=== PATIENT | female | born 1975 | race African-American/Black ===

== ENCOUNTER 2017-06-07 19:07 | Emergency (ER) ==
[2017-06-07 19:11] VITALS: BP 170/99; TEMP 98.4; BMI 38.6
[2017-06-07] MEDS ORDERED: TORADOL IM STA (19:33)
--- NOTE | 2017-06-07 20:13 | ED.PDOC ---
General ED Provider: Dr. TRINITY MCGRATH Chief Complaint: Back Pain Stated Complaint: while getting out of the bed, felt something popped , ever since hurting in the lower back, hurts to bend and walk. Time Seen by Physician: 20:11 Mode of Arrival: Walk-In Information Source: Patient Nursing and Triage Documentation Reviewed and Agree: Yes Musculoskeletal Complaint Exam - Back Pain Complaint/Exam Mechanism of Injury: Reports: No known trauma Symptoms Are: Still present Timing: Constant Episodes Lasting: Minutes Initial Severity: Moderate Current Severity: Moderate Location: Reports: Discrete Character: Reports: Aching, Throbbing Aggravating: Reports: Movements Alleviating: Reports: None Associated Signs and Symptoms: Denies: Swelling, Redness, Bruising, Fever, Weakness, Numbness, Tingling, Abdominal pain, Flank pain, Bladder incontinence, Bowel incontinence, Weight loss, Pain with weight bearing Related History: Reports: Similar episode TAD Risk Factors: Reports: None AAA Risk Factors: Reports: None Cauda Equina Risk Factors: Reports: None Epidural Abcess Risk Factors: Reports: None Related Surgical History: Reports: None Focal Tenderness: Yes Paraspinal Muscle Tenderness: Yes Paraspinal Muscle Spasm: Yes Scoliosis: No Lordosis: No Kyphosis: No SLR Test: Right Negative, Left Negative Hip Motion Testing Pain: Right Negative, Left Negative Focal Weakness: Present: None Focal Sensory Loss: Present: None Gait: Present: Normal Differential Diagnoses: Fracture, Strain Review of Systems - Review Of Systems Constitutional: Reports: No symptoms Eyes: Reports: No symptoms Ears, Nose, Mouth, Throat: Reports: No symptoms Respiratory: Reports: No symptoms Cardiac: Reports: No symptoms GI: Reports: No symptoms : Reports: No symptoms Musculoskeletal: Reports: Back pain Skin: Reports: No symptoms Neurological: Reports: No symptoms Endocrine: Reports: No symptoms Hematologic/Lymphatic: Reports: No symptoms All Other Systems: Reviewed and Negative Past Medical History - Past Medical History Previously Healthy: Yes Endocrine: Reports: None Cardiovascular: Reports: None Respiratory: Reports: None Hematological: Reports: None Gastrointestinal: Reports: None Genitourinary: Reports: None Neuro/Psych: Reports: None Musculoskeletal: Reports: None Cancer: Reports: None Last Menstrual Period: none - Surgical History General Surgical History: Reports: None - Family History Family History: Reports: None - Social History Smoking Status: Current every day smoker, Light tobacco smoker Smoking Cessation Counseling Time: > 3 min - 10 min Hx Substance Use: No Alcohol Screening: None Physical Exam - Physical Exam Appearance: Ill-appearing, Obese Pain Distress: Moderate Eyes: CAMILO, EOMI, Conjunctiva clear ENT: Ears normal, Nose normal, Oropharynx normal Respiratory: Airway patent, Breath sounds clear, Breath sounds equal, Respirations nonlabored Cardiovascular: RRR, Pulses normal, No rub, No murmur GI/: Soft, Nontender, No masses, Bowel sounds normal, No Organomegaly Musculoskeletal: Normal strength, ROM intact, No edema, No calf tenderness Skin: Warm, Dry, Normal color Neurological: Sensation intact, Motor intact, Reflexes intact, Cranial nerves intact, Alert, Oriented Psychiatric: Affect appropriate, Mood appropriate Interpretation - Radiology Interpretation Radiology Interpretation By: Radiologist Radiology Results: Positive (disc bulges.) Exam Interpreted: CT Scan Critical Care Note - Critical Care Note Total Time (mins): 0 Course - Course Orders, Labs, Meds: Orders Category Date Time Status Ketorolac Tromethamine [Toradol] MEDS 06/07/17 19:33 Discontinued 30 mg IM ONCE STA CT LUMBAR SPINE W/O CONTRAST Stat RADS 06/07/17 19:33 Taken Medications Discontinued Medications Generic Name Dose Route Start Last Admin Trade Name Freq PRN Reason Stop Dose Admin Ketorolac Tromethamine 30 mg 06/07/17 19:33 06/07/17 19:35 Toradol IM 06/07/17 19:34 30 mg ONCE STA Administration Vital Signs: Temp Pulse Resp BP Pulse Ox 06/07/17 19:08 98.4 F 78 18 170/99 H 98 Departure - Departure Time of Disposition: 20:17 Disposition: HOME SELF-CARE Discharge Problem: Backache Instructions: Low Back Strain (ED) Condition: Good Pt referred to PMD for follow-up: Yes Additional Instructions: Rest Hot pack Keep checking the BP Prescriptions: Hydrocodone/Acetaminophen [[place] 5-325 Tablet] 1 tab PO TID PRN #12 tablet PRN Reason: PAIN Prednisone 10 mg PO BIDWM #14 tablet Allergies/Adverse Reactions: Allergies No Known Allergies Allergy (Verified 06/07/17 19:11) Home Medications: Ambulatory Orders Hydrocodone/Acetaminophen [[place] 5-325 Tablet] 1 tab PO TID PRN #12 tablet 06/07 Metoprolol Tartrate [Lopressor] 100 mg PO DAILY 06/07/17 Prednisone 10 mg PO BIDWM #14 tablet 06/07/17 Tizanidine HCl [Zanaflex] 4 mg PO TID 06/07/17 Disposition Discussed With: Patient, Family
--- NOTE | 2017-06-07 20:13 | CT ---
EXAM: CT scan lumbar spine HISTORY: Back pain COMPARISON: None. FINDINGS: Contiguous axial images obtained through the lumbar spine utilizing 3-mm collimation. Sag ittal and coronal reconstructions were imaged and reviewed. There is mild dextroscoliosis. The verte bral bodies are normal and height and alignment.. At L2-L3 there is a concentric non compressive disc bulge with mild facet arthropathy. Similar changes are noted at L3-L4. At L4-L5 there is a moderat e concentric disc bulge with facet arthropathy. Central canal and foramen are patent.. At L5 S1 the re is a concentric disc bulge with facet arthropathy IMPRESSION: Multilevel non compressive annular disc bulge with facet arthropathy. Central canal and foramen are patent
== END 2017-06-07 20:32 | disposition home or self-care (01) ==
LOC: ED 19:07
DX: M54.5 Low back pain (principal); R03.0 Elevated blood-pressure reading, without diagnosis of hypertension; F17.210 Nicotine dependence, cigarettes, uncomplicated
CPT/HCPCS: 96372; 99282

== ENCOUNTER 2017-09-24 09:20 | Emergency (ER) ==
[2017-09-24 09:27] VITALS: BP 152/79; TEMP 99.4; BMI 36.6
--- NOTE | 2017-09-24 09:37 | ED.PDOC ---
General ED Provider: Dr. BELINDA LANGE Chief Complaint: Abdominal Pain Stated Complaint: Patient states she has had epigastric pain for the past two days unable to eat or drink with nausea and vomiting. Time Seen by Physician: 09:35 Mode of Arrival: Walk-In Information Source: Patient Exam Limitations: No limitations Primary Care Provider: GERSON ALVARADO Nursing and Triage Documentation Reviewed and Agree: Yes Reviewed sepsis parameters & appropriate labs ordered?: No System Inflammatory Response Syndrome: Not Applicable Sepsis Protocol: For patient's 13 years and over: Temp is 96.8 and below OR 101 and greater Pulse >90 BPM Resp >20/minute Acutely Altered Mental Status Are patient's symptoms suggestive of a new infection, such as: -Pneumonia -Skin, Soft Tissue -Endocarditis -UTI -Bone, Joint Infection -Implantable Device -Acute Abdominal Infection -Wound Infection -Meningitis -Blood Stream Catheter Infection -Unknown System Inflammatory Response Syndrome: Not Applicable GI Complaint Exam - Abdominal Pain Complaint/Exam Onset: Gradual Duration: 2 days Symptoms Are: Still present Timing: Constant Initial Severity: Moderate Current Severity: Moderate Location of Pain: Epigastric Radiates To: Denies: Chest, Back, Flank, LLQ, RLQ, Inguinal Character: Reports: Burning Aggravating: Reports: Eating Alleviating: Reports: None Associated Signs and Symptoms: Reports: Nausea, Vomiting Related History: Reports: Similar episode AAA Risk Factors: Reports: None Cardiac Risk Factors: Reports: None Ectopic Risk Factors: Reports: None Ovarian Torsion Risk Factors: Reports: None Surgical Obstruction Risk Factors: Reports: None Related Surgical History: Reports: None Patient Rh Status: Unknown Abdominal Findings: Present: None Review of Systems - Review Of Systems Constitutional: Reports: No symptoms Eyes: Reports: No symptoms Ears, Nose, Mouth, Throat: Reports: No symptoms Respiratory: Reports: No symptoms Cardiac: Reports: No symptoms GI: Reports: Abdominal pain (epigastric area ) : Reports: No symptoms Musculoskeletal: Reports: No symptoms Skin: Reports: No symptoms Neurological: Reports: No symptoms Endocrine: Reports: No symptoms Hematologic/Lymphatic: Reports: No symptoms All Other Systems: Reviewed and Negative Past Medical History - Past Medical History Previously Healthy: Yes Endocrine: Reports: None Cardiovascular: Reports: Hypertension Respiratory: Reports: Asthma Hematological: Reports: None Gastrointestinal: Reports: GERD Genitourinary: Reports: None Neuro/Psych: Reports: None Musculoskeletal: Reports: None Cancer: Reports: None Last Menstrual Period: na Other Pertinent Past Medical History: Josephtzki's ring, gastritis, esophageal dilatation and biopsy of stomach - Surgical History General Surgical History: Reports: Hysterectomy, (x2 ), Orthopedic ( carpal tunnel), Other ( esophageal dilatation and biopsy of lesser curvature, ) - Family History Family History: Reports: None - Social History Smoking Status: Current some day smoker Hx Substance Use: No Alcohol Screening: Occasionally - Immunizations Tetanus Shot up to Date: Yes Physical Exam - Physical Exam Appearance: Ill-appearing, No pain distress, Obese Ill-appearing: Moderate Pain Distress: Moderate Eyes: CAMILO, EOMI, Conjunctiva clear ENT: Ears normal, Nose normal, Oropharynx normal Neck: Supple Respiratory: Airway patent, Breath sounds clear, Breath sounds equal, Respirations nonlabored Cardiovascular: RRR, Pulses normal, No rub, No murmur GI/: Soft, Nontender Musculoskeletal: Normal strength, ROM intact, No edema, No calf tenderness Skin: Warm, Dry, Normal color Neurological: Sensation intact, Motor intact, Reflexes intact, Cranial nerves intact, Alert, Oriented Psychiatric: Anxious Interpretation - Radiology Interpretation Radiology Interpretation By: Radiologist Radiology Results: Positive Exam Interpreted: CT Scan (colonic diverticulitis in the cecum region. ) - EKG Interpretation Time of EKG #1: 09:51 Rate: Normal Rhythm: Sinus Ectopy: None [place]: [place] Interpretation: Normal sinus with sinus Arrhythmia Critical Care Note - Critical Care Note Total Time (mins): 0 Course - Course Hematology/Chemistry: 09/24/17 10:00 09/24/17 10:00 Orders, Labs, Meds: Lab Review 09/24/17 09/24/17 09/24/17 09:45 10:00 10:00 WBC 13.37 H RBC 4.17 L Hgb 13.7 Hct 39.5 MCV 94.7 MCH 32.9 H MCHC 34.7 RDW Coeff of Shahab 12.8 Plt Count 296 Immature Gran % (Auto) 0.4 Neut % (Auto) 78.2 Lymph % (Auto) 15.3 [place] % (Auto) 6.0 Eos % (Auto) 0.0 Baso % (Auto) 0.1 Immature Gran # (Auto) 0.1 Neut # (Auto) 10.5 H Lymph # (Auto) 2.0 [place] # (Auto) 0.8 Eos # (Auto) 0.0 Baso # (Auto) 0.0 Sodium 138 Potassium 3.7 Chloride 109 H Carbon Dioxide 19 L Anion Gap 13.7 BUN 9 Creatinine 0.70 Estimated GFR (MDRD) 112.00 BUN/Creatinine Ratio 12.85 Glucose 112 H Calcium 9.7 Total Bilirubin 1.0 AST 13 L ALT 13 Alkaline Phosphatase 78 Troponin I < 0.0100 Total Protein 7.2 Albumin 3.4 Globulin 3.8 Albumin/Globulin Ratio 0.89 Amylase 141 H Lipase 101 H Urine Color Dark Urine Clarity Cloudy Urine pH 5.5 Ur Specific [place] >=1.030 Urine Protein 1+ Urine Glucose (UA) Negative Urine Ketones 2+ Urine Blood 1+ Urine Nitrite Negative Urine Bilirubin 1+ Urine Urobilinogen 1.0 Ur Leukocyte Esterase 1+ Urine Microscopic RBC 0-2 Urine Microscopic WBC 5-10 Ur Squamous Epith Cells 50-100 Amorphous Sediment 1+ Urine Bacteria 4+ Urine Trichomonas Moderate Orders Category Date Time Status EKG-(ED ONLY) Stat CARDIO 09/24/17 09:47 Completed ED IV/MEDIPORT/POWERPORT .ONCE EMERGENCY 09/24/17 09:40 Active AMYLASE Stat LAB 09/24/17 10:00 Completed CBC W/ AUTO DIFF Stat LAB 09/24/17 10:00 Completed COMPREHENSIVE METABOLIC PANEL Stat LAB 09/24/17 10:00 Completed LIPASE Stat LAB 09/24/17 10:00 Completed TROPONIN I Stat LAB 09/24/17 10:00 Completed URINALYSIS C & S IF INDICATED Stat LAB 09/24/17 09:45 Completed URINE CULTURE Stat LAB 09/24/17 09:45 Received 0.9 % Sodium Chloride [Saline Flush] MEDS 09/24/17 09:40 Active 1 syr IVF PRN PRN Levofloxacin/D5w [Levaquin] 100 ml MEDS 09/24/17 11:33 Discontinued IV .STK-MED Levofloxacin/D5w [Levaquin] 500 mg MEDS 09/24/17 11:26 Discontinued Premix 100 ml D5w 1 bag IV ONCE Metronidazole [Flagyl] MEDS 09/24/17 11:33 Discontinued 500 mg PO ONCE STA Pantoprazole Sodium [Protonix IV] MEDS 09/24/17 09:48 Discontinued 40 mg IVP ONCE STA Promethazine HCl [Phenergan 25 mg/ml Vial] MEDS 09/24/17 09:48 Discontinued 25 mg .ROUTE .STK-MED ONE Promethazine HCl [Phenergan 25 mg/ml Vial] 25 mg MEDS 09/24/17 09:40 Discontinued 0.9 % Sodium Chloride [Sodium Chloride] 50 ml IV ONCE Sodium Chloride 0.9% [Sodium Chloride] 1,000 ml MEDS 09/24/17 09:[address] ABDOMEN/PELVIS WO CONTRAST Stat RADS 09/24/17 10:32 Completed Medications Generic Name Dose Route Start Last Admin Trade Name Freq PRN Reason Stop Dose Admin Sodium Chloride 1 syr 09/24/17 09:40 Saline Flush IVF PRN PRN To flush IV Discontinued Medications Generic Name Dose Route Start Last Admin Trade Name Freq PRN Reason Stop Dose Admin Promethazine HCl 25 mg/ Sodium 51 mls @ 75 mls/hr 09/24/17 09:40 09/24/17 10: 03 Chloride IV 09/24/17 10:20 75 mls/hr ONCE STA Administration Sodium Chloride 1,000 mls @ 1,000 mls/hr 09/24/17 09:40 09/24/17 10:04 Sodium Chloride IV 09/24/17 10:39 1,000 mls/hr BOLUS STA Administration Levofloxacin/Dextrose 500 mg/ 100 mls @ 100 mls/hr 09/24/17 11:26 09/24/17 11 :42 Dextrose IV 09/24/17 12:25 100 mls/hr ONCE STA Administration Metronidazole 500 mg 09/24/17 11:33 Flagyl PO 09/24/17 11:34 ONCE STA Pantoprazole Sodium 40 mg 09/24/17 09:48 09/24/17 10:10 Protonix Iv IVP 09/24/17 09:49 40 mg ONCE STA Administration Vital Signs: Temp Pulse Resp BP Pulse Ox 09/24/17 09:22 99.4 F 76 20 152/79 H 98 Departure - Departure Time of Disposition: 11:33 Disposition: HOME SELF-CARE Discharge Problem: Diverticulitis GERD (gastroesophageal reflux disease) Qualifiers: Esophagitis presence: without esophagitis Qualified Code(s): K21.9 - Gastro- esophageal reflux disease without esophagitis UTI (urinary tract infection) Qualifiers: Urinary tract infection type: site unspecified Hematuria presence: without hematuria Qualified Code(s): N39.0 - Urinary tract infection, site not specified Instructions: Diverticulitis (ED), Urinary Tract Infection in Women (ED), Gastroesophageal Reflux Disease (ED) Condition: Stable Pt referred to PMD for follow-up: Yes IPMP verified?: No Additional Instructions: Take medications as prescribed Follow up with PCP in 3 days Prescriptions: Levofloxacin [Levaquin] 500 mg PO QDAC #10 tablet Metronidazole [Flagyl] 500 mg PO TID #30 tablet Pantoprazole Sodium [Protonix] 40 mg PO DAILY #30 tablet. Allergies/Adverse Reactions: Allergies No Known Allergies Allergy (Verified 06/07/17 19:11) Home Medications: Ambulatory Orders Metoprolol Tartrate [Lopressor] 100 mg PO DAILY 06/07/17 Levofloxacin [Levaquin] 500 mg PO QDAC #10 tablet 09/24/17 Metronidazole [Flagyl] 500 mg PO TID #30 tablet 09/24/17 Pantoprazole Sodium [Protonix] 40 mg PO DAILY #30 tablet. 09/24/17 Transfer Form Completed: Yes Disposition Discussed With: Patient, Family
[2017-09-24] MEDS ORDERED: PHENERGAN 25 MG/ML VIAL 25 MG in SODIUM CHLORIDE 50 ML IV STA (09:40)
[2017-09-24] MEDS ORDERED: SODIUM CHLORIDE 1,000 ML IV STA (09:40)
[2017-09-24] MEDS ORDERED: PROTONIX IV IVP STA (09:48)
[2017-09-24] MEDS ORDERED: PHENERGAN 25 MG/ML VIAL ONE (09:48)
--- NOTE | 2017-09-24 11:12 | CT ---
EXAM: CT abdomen pelvis without contrast HISTORY: Epigastric pain COMPARISON: None TECHNIQUE: CT abdomen pelvis performed without intravenous contrast. Coronal and sagittal reformatt ed images obtained. FINDINGS: Lung bases clear. No free air. No acute abnormalities of the bones. Heart normal in siz e. Evaluation organ parenchyma limited without contrast. Liver appears normal. Gallbladder appears normal. Pancreas appears normal. Spleen appears normal. Adrenals appear normal. Kidneys appear n ormal without hydronephrosis or nephrolithiasis. Bladder unremarkable. Patient status post hysterec jm. Aorta normal in caliber. Stomach appears normal. No dilated loops small bowel. Appendix appe ars normal. Colonic diverticula. Mild stranding changes suggested surrounding which appears to be a diverticula in the cecum around image 77. Small fat-containing periumbilical hernia. Aorta normal in caliber. No lymphadenopathy or ascites. IMPRESSION: Colonic diverticulosis with probable mild diverticulitis in the cecum region.
[2017-09-24] MEDS ORDERED: LEVAQUIN 500 MG in PREMIX 100 ML D5W 1 BAG IV STA (11:26)
[2017-09-24] MEDS ORDERED: FLAGYL 500 MG/100 ML 500 MG in PREMIX 100 ML NS 1 BAG IV STA (11:27)
[2017-09-24] MEDS ORDERED: LEVAQUIN 100 ML IV ONE (11:33)
[2017-09-24] MEDS ORDERED: FLAGYL PO STA (11:33)
== END 2017-09-24 13:40 | disposition home or self-care (01) ==
LOC: ED 09:20
DX: K57.92 Diverticulitis of intestine, part unspecified, without perforation or abscess without bleeding (principal); N39.0 Urinary tract infection, site not specified; K21.9 Gastro-esophageal reflux disease without esophagitis; F17.210 Nicotine dependence, cigarettes, uncomplicated
CPT/HCPCS: 36415; 80053; 81001; 82150; 83690; 84484; 85025; 87086; 93005; 93010; 96361; 96365; 96366; 96375; 99284

== ENCOUNTER 2017-12-29 07:35 | Emergency (ER) ==
[2017-12-29 07:39] VITALS: BP 132/81; TEMP 98; BMI 37.0
--- NOTE | 2017-12-29 07:51 | ED.PDOC ---
General ED Provider: Dr. ROBERT GARCIA Chief Complaint: Abscess Stated Complaint: abscess Time Seen by Physician: 07:40 (ana maria present at bedside and photos are submitted ) Mode of Arrival: Walk-In Information Source: Patient Exam Limitations: No limitations Primary Care Provider: GERSON ALVARADO Nursing and Triage Documentation Reviewed and Agree: Yes Reviewed sepsis parameters & appropriate labs ordered?: Yes System Inflammatory Response Syndrome: Not Applicable Sepsis Protocol: For patient's 13 years and over: Temp is 96.8 and below OR 101 and greater Pulse >90 BPM Resp >20/minute Acutely Altered Mental Status Are patient's symptoms suggestive of a new infection, such as: -Pneumonia -Skin, Soft Tissue -Endocarditis -UTI -Bone, Joint Infection -Implantable Device -Acute Abdominal Infection -Wound Infection -Meningitis -Blood Stream Catheter Infection -Unknown Skin Complaint Exam - Skin/Soft Tissue Complaint/Exam Onset/Duration: 3 days worse today Symptoms Are: Still present Timing: Constant Initial Severity: Moderate Current Severity: Moderate Character: Reports: Raised, Painful Aggravating: Reports: None, Heat Alleviating: Reports: None Associated Signs and Symptoms: Reports: Tenderness. Denies: Fever, Chills, Itching, Drainage, Bruising, Red streaks, Joint swelling Related Surgical History: Reports: None Recent Exposure to Others w/Similar Symptoms: No Skin Findings: Present: Pustules Differential Diagnoses: Abscess, MRSA Review of Systems - Review Of Systems Constitutional: Reports: No symptoms Eyes: Reports: No symptoms Ears, Nose, Mouth, Throat: Reports: No symptoms Respiratory: Reports: No symptoms Cardiac: Reports: No symptoms GI: Reports: No symptoms : Reports: No symptoms Musculoskeletal: Reports: No symptoms Skin: Reports: Other (abscess) Neurological: Reports: No symptoms Endocrine: Reports: No symptoms Hematologic/Lymphatic: Reports: No symptoms All Other Systems: Reviewed and Negative Past Medical History - Past Medical History Previously Healthy: Yes Endocrine: Reports: None Cardiovascular: Reports: Hypertension Respiratory: Reports: Asthma Hematological: Reports: None Gastrointestinal: Reports: GERD Genitourinary: Reports: None Neuro/Psych: Reports: None Musculoskeletal: Reports: None Cancer: Reports: None Last Menstrual Period: none Other Pertinent Past Medical History: Schatzki's ring, gastritis, esophageal dilatation and biopsy of stomach - Surgical History General Surgical History: Reports: Hysterectomy, (x2 ), Orthopedic ( carpal tunnel), Other ( esophageal dilatation and biopsy of lesser curvature, ) - Family History Family History: Reports: None - Social History Smoking Status: Current some day smoker, Light tobacco smoker Hx Substance Use: No Alcohol Screening: Occasionally Physical Exam - Physical Exam Appearance: Well-appearing, No pain distress, Well-nourished Eyes: CAMILO, EOMI, Conjunctiva clear ENT: Ears normal, Nose normal, Oropharynx normal Respiratory: Airway patent, Breath sounds clear, Breath sounds equal, Respirations nonlabored Cardiovascular: RRR, Pulses normal, No rub, No murmur GI/: Soft, Nontender, No masses, Bowel sounds normal, No Organomegaly Musculoskeletal: Normal strength, ROM intact, No edema, No calf tenderness Skin: Warm, Dry (pustule left tigh) Neurological: Sensation intact, Motor intact, Reflexes intact, Cranial nerves intact, Alert, Oriented Psychiatric: Affect appropriate, Mood appropriate Physician Notification - Case Discussed Physician Notified: alessandra LEAL Time of Notification: 08:22 Critical Care Note - Critical Care Note Total Time (mins): 0 Course - Course Vital Signs: Temp Pulse Resp BP Pulse Ox 12/29/17 07:37 98.0 F 83 18 132/81 98 Departure - Departure Time of Disposition: 09:00 (ALESSANDRA LEAL ACCEPTED TO SEE THIS LADY IN THE OFFICE ) Disposition: TSF SHORT-TRM HOSP Discharge Problem: Abscess Instructions: Abscess (ED) Condition: Good Pt referred to PMD for follow-up: Yes IPMP verified?: No Additional Instructions: Please call your Family Physician as soon as possible to schedule a follow-up appointment. Allergies/Adverse Reactions: Allergies No Known Allergies Allergy (Verified 12/29/17 07:39) Home Medications: Ambulatory Orders Pantoprazole Sodium [Protonix] 40 mg PO QDAC 12/29/17 Disposition Discussed With: Patient
== END 2017-12-29 08:27 | disposition home or self-care (01) ==
LOC: ED 07:35
DX: L02.416 Cutaneous abscess of left lower limb (principal)
CPT/HCPCS: 99281

== ENCOUNTER 2018-02-02 08:56 | Emergency (ER) ==
[2018-02-02 09:01] VITALS: BP 151/96; TEMP 97.7; BMI 37.3
--- NOTE | 2018-02-02 09:09 | ED.PDOC ---
General ED Provider: Dr. ROBERT GARCIA Chief Complaint: Abscess Stated Complaint: abscess axilla left Time Seen by Physician: 09:00 (see photos binu present at all times ) Mode of Arrival: Walk-In Information Source: Patient Exam Limitations: No limitations Primary Care Provider: GERSON ALVARADO Nursing and Triage Documentation Reviewed and Agree: Yes Does patient meet sepsis criteria?: Yes If yes, has appropriate treatment been initiated?: No System Inflammatory Response Syndrome: Not Applicable Sepsis Protocol: For patient's 13 years and over: Temp is 96.8 and below OR 101 and greater Pulse >90 BPM Resp >20/minute Acutely Altered Mental Status Are patient's symptoms suggestive of a new infection, such as: -Pneumonia -Skin, Soft Tissue -Endocarditis -UTI -Bone, Joint Infection -Implantable Device -Acute Abdominal Infection -Wound Infection -Meningitis -Blood Stream Catheter Infection -Unknown Skin Complaint Exam - Skin/Soft Tissue Complaint/Exam Onset/Duration: abscess left axilla 7 days Symptoms Are: Still present Timing: Constant Initial Severity: Mild Current Severity: Mild Character: Reports: Swelling, Raised, Painful Aggravating: Reports: None Alleviating: Reports: None Associated Signs and Symptoms: Reports: Tenderness. Denies: Fever, Chills, Itching, Drainage, Bruising, Red streaks, Joint swelling Related History: Reports: Similar episode Related Surgical History: Reports: None Recent Exposure to Others w/Similar Symptoms: No Skin Findings: Present: Pustules Joint Tenderness Present: No Differential Diagnoses: Abscess Review of Systems - Review Of Systems Constitutional: Reports: No symptoms Eyes: Reports: No symptoms Ears, Nose, Mouth, Throat: Reports: No symptoms Respiratory: Reports: No symptoms Cardiac: Reports: No symptoms GI: Reports: No symptoms : Reports: No symptoms Musculoskeletal: Reports: No symptoms Skin: Reports: Other (abscess see photos) Neurological: Reports: No symptoms Endocrine: Reports: No symptoms Hematologic/Lymphatic: Reports: No symptoms All Other Systems: Reviewed and Negative Past Medical History - Past Medical History Previously Healthy: Yes Endocrine: Reports: None Cardiovascular: Reports: Hypertension Respiratory: Reports: Asthma Hematological: Reports: None Gastrointestinal: Reports: GERD Genitourinary: Reports: None Neuro/Psych: Reports: None Musculoskeletal: Reports: None Cancer: Reports: None Last Menstrual Period: n/a Other Pertinent Past Medical History: Schatzki's ring, gastritis, esophageal dilatation and biopsy of stomach - Surgical History General Surgical History: Reports: Hysterectomy, (x2 ), Orthopedic ( carpal tunnel), Other ( esophageal dilatation and biopsy of lesser curvature, ) - Family History Family History: Reports: None - Social History Smoking Status: Current some day smoker, Light tobacco smoker Hx Substance Use: No Alcohol Screening: Occasionally Physical Exam - Physical Exam Appearance: Well-appearing, No pain distress, Well-nourished Eyes: CAMILO, EOMI, Conjunctiva clear ENT: Ears normal, Nose normal, Oropharynx normal Respiratory: Airway patent, Breath sounds clear, Breath sounds equal, Respirations nonlabored Cardiovascular: RRR, Pulses normal, No rub, No murmur GI/: Soft, Nontender, No masses, Bowel sounds normal, No Organomegaly Musculoskeletal: Normal strength, ROM intact, No edema, No calf tenderness Skin: Warm, Dry (1cm abscess not pointing (see photos)) Neurological: Sensation intact, Motor intact, Reflexes intact, Cranial nerves intact, Alert, Oriented Psychiatric: Affect appropriate, Mood appropriate Critical Care Note - Critical Care Note Total Time (mins): 0 Course - Course Vital Signs: Temp Pulse Resp BP Pulse Ox 02/02/18 08:58 97.7 F 76 16 151/96 H 97 Departure - Departure Time of Disposition: 09:09 Disposition: HOME SELF-CARE Discharge Problem: Abscess Instructions: Abscess (ED) Condition: Good Pt referred to PMD for follow-up: Yes IPMP verified?: No Additional Instructions: Please call your Family Physician as soon as possible to schedule a follow-up appointment. Allergies/Adverse Reactions: Allergies No Known Allergies Allergy (Verified 02/02/18 09:01) Home Medications: Ambulatory Orders Albuterol Sulfate [Proair Hfa] 2 puff IH Q6H MDD shortness of air 02/02/18
== END 2018-02-02 09:18 | disposition home or self-care (01) ==
LOC: ED 08:56
DX: L02.412 Cutaneous abscess of left axilla (principal); F17.210 Nicotine dependence, cigarettes, uncomplicated
CPT/HCPCS: 99282

== ENCOUNTER 2018-02-13 09:15 | Emergency (ER) ==
[2018-02-13 09:36] VITALS: TEMP 99.2; BMI 36.4
--- NOTE | 2018-02-13 09:39 | ED.PDOC ---
General ED Provider: Dr. ELÍAS SUAREZ Chief Complaint: Non-specific Complaint Stated Complaint: general aches all over, nausea with two episodes of emesis, headache, et diarrheageneral aches all over, nausea with two episodes of emesis , headache, et diarrhea. Normally uses bronchodilator and is out of med.Needs refills Time Seen by Physician: 09:45 Mode of Arrival: Walk-In Information Source: Patient Exam Limitations: No limitations Primary Care Provider: GERSON ALVARADO Nursing and Triage Documentation Reviewed and Agree: Yes Does patient meet sepsis criteria?: No System Inflammatory Response Syndrome: Not Applicable Sepsis Protocol: For patient's 13 years and over: Temp is 96.8 and below OR 101 and greater Pulse >90 BPM Resp >20/minute Acutely Altered Mental Status Are patient's symptoms suggestive of a new infection, such as: -Pneumonia -Skin, Soft Tissue -Endocarditis -UTI -Bone, Joint Infection -Implantable Device -Acute Abdominal Infection -Wound Infection -Meningitis -Blood Stream Catheter Infection -Unknown Review of Systems - Review Of Systems Constitutional: Reports: No symptoms Eyes: Reports: No symptoms Ears, Nose, Mouth, Throat: Reports: No symptoms Respiratory: Reports: No symptoms Cardiac: Reports: No symptoms GI: Reports: Diarrhea, Nausea, Vomiting : Reports: No symptoms Musculoskeletal: Reports: No symptoms Skin: Reports: No symptoms Neurological: Reports: No symptoms Endocrine: Reports: No symptoms Hematologic/Lymphatic: Reports: No symptoms All Other Systems: Reviewed and Negative Past Medical History - Past Medical History Previously Healthy: Yes Endocrine: Reports: None Cardiovascular: Reports: Hypertension Respiratory: Reports: Asthma Hematological: Reports: None Gastrointestinal: Reports: GERD Genitourinary: Reports: None Neuro/Psych: Reports: None Musculoskeletal: Reports: None Cancer: Reports: None Last Menstrual Period: N/A Other Pertinent Past Medical History: Schatzki's ring, gastritis, esophageal dilatation and biopsy of stomach - Surgical History General Surgical History: Reports: Hysterectomy, (x2 ), Orthopedic ( carpal tunnel), Other ( esophageal dilatation and biopsy of lesser curvature, ) - Family History Family History: Reports: None - Social History Smoking Status: Current some day smoker, Light tobacco smoker Hx Substance Use: No Alcohol Screening: Occasionally - Immunizations Tetanus Shot up to Date: (unsure) Physical Exam - Physical Exam Appearance: Ill-appearing, No pain distress, Well-nourished, Obese Ill-appearing: Mild Pain Distress: None Eyes: CAMILO, EOMI, Conjunctiva clear ENT: Ears normal, Nose normal, Oropharynx normal Respiratory: Airway patent, Breath sounds clear, Breath sounds equal, Respirations nonlabored Cardiovascular: RRR, Pulses normal, No rub, No murmur GI/: Soft, No masses, Bowel sounds normal, No Organomegaly, Tender Musculoskeletal: Normal strength, ROM intact, No edema, No calf tenderness Skin: Warm, Dry, Normal color Neurological: Sensation intact, Motor intact, Reflexes intact, Cranial nerves intact, Alert, Oriented Psychiatric: Affect appropriate, Mood appropriate Critical Care Note - Critical Care Note Total Time (mins): 30 Course - Course Hematology/Chemistry: 02/13/18 10:55 02/13/18 10:55 Orders, Labs, Meds: Lab Review 02/13/18 02/13/18 02/13/18 09:52 10:25 10:55 WBC 11.56 H RBC 3.71 L Hgb 11.9 L Hct 35.2 L MCV 94.9 MCH 32.1 H MCHC 33.8 RDW Coeff of Shahab 12.8 Plt Count 314 Immature Gran % (Auto) 0.4 Neut % (Auto) 76.7 Lymph % (Auto) 17.0 [place] % (Auto) 5.4 Eos % (Auto) 0.3 Baso % (Auto) 0.2 Immature Gran # (Auto) 0.1 Neut # (Auto) 8.9 H Lymph # (Auto) 2.0 [place] # (Auto) 0.6 Eos # (Auto) 0.0 Baso # (Auto) 0.0 Sodium Potassium Chloride Carbon Dioxide Anion Gap BUN Creatinine Estimated GFR (MDRD) BUN/Creatinine Ratio Glucose Calcium Total Bilirubin AST ALT Alkaline Phosphatase Total Protein Albumin Globulin Albumin/Globulin Ratio Lipase Urine Color Yellow Urine Clarity Cloudy Urine pH 6.0 Ur Specific [place] >=1.030 Urine Protein Trace Urine Glucose (UA) Negative Urine Ketones 1+ Urine Blood Trace-lysed Urine Nitrite Negative Urine Bilirubin 1+ Urine Urobilinogen 1.0 Ur Leukocyte Esterase Negative Urine Microscopic RBC 0-2 Ur Squamous Epith Cells 50-100 Influ A Molecular Assay Negative by naat Influ B Molecular Assay Negative by naat 02/13/18 10:55 WBC RBC Hgb Hct MCV MCH MCHC RDW Coeff of Shahab Plt Count Immature Gran % (Auto) Neut % (Auto) Lymph % (Auto) [place] % (Auto) Eos % (Auto) Baso % (Auto) Immature Gran # (Auto) Neut # (Auto) Lymph # (Auto) [place] # (Auto) Eos # (Auto) Baso # (Auto) Sodium 138 Potassium 3.5 Chloride 110 H Carbon Dioxide 19 L Anion Gap 12.5 BUN 6 L Creatinine 0.68 Estimated GFR (MDRD) 116.00 BUN/Creatinine Ratio 8.82 Glucose 95 Calcium 9.0 Total Bilirubin 1.2 AST 12 L ALT 9 L Alkaline Phosphatase 82 Total Protein 6.6 Albumin 3.3 L Globulin 3.3 Albumin/Globulin Ratio 1.00 Lipase 10 Urine Color Urine Clarity Urine pH Ur Specific [place] Urine Protein Urine Glucose (UA) Urine Ketones Urine Blood Urine Nitrite Urine Bilirubin Urine Urobilinogen Ur Leukocyte Esterase Urine Microscopic RBC Ur Squamous Epith Cells Influ A Molecular Assay Influ B Molecular Assay Orders Category Date Time Status IV [ED IV/MEDIPORT/POWERPORT] .ONCE EMERGENCY 02/13/18 10:13 Active CBC W/ AUTO DIFF Stat LAB 02/13/18 10:55 Completed CMP [COMPREHENSIVE METABOLIC PANEL] Stat LAB 02/13/18 10:55 Completed FLU A & B MOLECULAR [FLU A/B MOLECULAR] Stat LAB 02/13/18 10:25 Completed LIPASE Stat LAB 02/13/18 10:55 Completed UA [URINALYSIS C & S IF INDICATED] Stat LAB 02/13/18 09:52 Completed 0.9 % Sodium Chloride [Saline Flush] MEDS 02/13/18 10:13 Active 1 syr IVF PRN PRN Acetaminophen [Tylenol] MEDS 02/13/18 11:40 Discontinued 650 mg PO ONCE STA Lisinopril [Zestril] MEDS 02/13/18 11:44 Discontinued 10 mg PO ONCE STA Ondansetron HCl/Pf [Zofran 4 mg/2 ml] MEDS 02/13/18 10:14 Discontinued 4 mg IVP ONCE STA Sodium Chloride 0.9% [Sodium Chloride] 500 ml MEDS 02/13/18 10:13 Discontinued IV BOLUS ABDOMEN, SERIES FLAT & UPRIGHT Stat RADS 02/13/18 10:12 Completed CHEST, 2 VIEWS PA & LAT Stat RADS 02/13/18 10:12 Completed Medications Generic Name Dose Route Start Last Admin Trade Name Freq PRN Reason Stop Dose Admin Sodium Chloride 1 syr 02/13/18 10:13 Saline Flush IVF PRN PRN To flush IV Discontinued Medications Generic Name Dose Route Start Last Admin Trade Name Babak PRN Reason Stop Dose Admin Acetaminophen 650 mg 02/13/18 11:40 02/13/18 11:47 Tylenol PO 02/13/18 11:41 650 mg ONCE STA Administration Sodium Chloride 500 mls @ 500 mls/hr 02/13/18 10:13 02/13/18 11:12 Sodium Chloride IV 02/13/18 11:12 500 mls/hr BOLUS STA Administration Lisinopril 10 mg 02/13/18 11:44 02/13/18 11:47 Zestril PO 02/13/18 11:45 10 mg ONCE STA Administration Ondansetron HCl 4 mg 02/13/18 10:14 02/13/18 11:11 Zofran 4 Mg/2 Ml IVP 02/13/18 10:15 4 mg ONCE STA Administration Vital Signs: Temp Pulse Resp BP Pulse Ox 02/13/18 12:26 78 18 156/90 H 02/13/18 11:35 74 18 162/79 H 02/13/18 09:25 99.2 F 86 20 166/107 H 97 Departure - Departure Time of Disposition: 12:20 Disposition: HOME SELF-CARE Discharge Problem: Gastroenteritis, Hypertension, Chronic bronchitis Instructions: Tension Headache (ED), Hypertension (ED) Condition: Good Pt referred to PMD for follow-up: Yes IPMP verified?: No Prescriptions: Albuterol Sulfate [Ventolin Hfa] 2 inh PO QID 30 Days hfa.aer.ad Lisinopril 10 mg PO BEDTIME #30 tablet Ondansetron [Zofran Odt] 4 mg PO Q8H PRN #7 tab.rapdis PRN Reason: Nausea / Vomiting Allergies/Adverse Reactions: Allergies No Known Allergies Allergy (Verified 02/02/18 09:01) Home Medications: Ambulatory Orders Albuterol Sulfate [Proair Hfa] 2 puff IH Q6H MDD shortness of air 02/02/18 Albuterol Sulfate [Ventolin Hfa] 2 inh PO QID 30 Days hfa.aer.ad 02/13/18 Lisinopril 10 mg PO BEDTIME #30 tablet 02/13/18 Ondansetron [Zofran Odt] 4 mg PO Q8H PRN #7 tab.rapdis 02/13/18 Disposition Discussed With: Patient GI Complaint Exam - Vomiting/Diarrhea Complaint/Exam Symptoms Are: Still present Episodes of Vomiting over last 24 Hours: 2 Episodes of Diarrhea Over Last 24 Hours: 1 Initial Severity: Moderate Current Severity: Moderate Character of Vomiting: Reports: Non-bilious Character of Diarrhea: Reports: Watery Aggravating: Reports: None Alleviating: Reports: Clear liquids Associated Signs and Symptoms: Denies: Dizziness, Light-headedness, Melena, Hematemesis, Fever, Abdominal pain, Cramping Last Oral Intake: this morning Surgical Obstruction Risk Factors: Reports: None Related Surgical History: Reports: None Abdominal Findings: Present: None Differential Diagnoses: Gastritis, Viral Gastroenteritis
[2018-02-13] MEDS ORDERED: SODIUM CHLORIDE 500 ML IV STA (10:13)
[2018-02-13] MEDS ORDERED: ZOFRAN 4 MG/2 ML IVP STA (10:14)
--- NOTE | 2018-02-13 10:53 | DI ---
EXAM: Chest two views HISTORY: Chest congestion COMPARISON: None TECHNIQUE: Two views of the chest were performed FINDINGS: The lungs are clear. There is no pleural effusion or pneumothorax. The heart is normal i n size. The mediastinal contour is normal. There are no acute abnormalities of the bones. IMPRESSION: No acute cardiopulmonary process.
--- NOTE | 2018-02-13 10:53 | DI ---
EXAM: Abdomen series. HISTORY: Abdominal pain, diarrhea. COMPARISON: CT 09/24/2017. TECHNIQUE: Supine and upright views of the abdomen. FINDINGS: Lung bases are clear. Air and stool noted throughout the colon and mildly distended small bowel loops. Scattered air-fluid levels present which are likely within both small and large bowel. No free air identified. No soft tissue masses or abnormal calcifications detected. No acute osseo us abnormality identified. IMPRESSION: Nonspecific bowel gas pattern.
[2018-02-13] MEDS ORDERED: TYLENOL PO STA (11:40)
[2018-02-13] MEDS ORDERED: ZESTRIL PO STA (11:44)
[2018-02-13 12:27] VITALS: BP 156/90
== END 2018-02-13 12:37 | disposition home or self-care (01) ==
LOC: ED 09:15
DX: K52.9 Noninfective gastroenteritis and colitis, unspecified (principal); I10 Essential (primary) hypertension; J42 Unspecified chronic bronchitis; F17.210 Nicotine dependence, cigarettes, uncomplicated
CPT/HCPCS: 36415; 80053; 81001; 83690; 85025; 87502; 96361; 96374; 99283

== ENCOUNTER 2018-05-17 14:12 | Emergency (ER) ==
[2018-05-17 14:16] VITALS: BP 142/88; TEMP 98.7; BMI 34.8
--- NOTE | 2018-05-17 14:44 | ED.PDOC ---
General ED Provider: Dr. ELÍAS SUAREZ Chief Complaint: Abdominal Pain Stated Complaint: Discomfort Mid epigastric region Time Seen by Physician: 14:35 Mode of Arrival: Walk-In Information Source: Patient Exam Limitations: No limitations Primary Care Provider: GERSON ALVARADO Nursing and Triage Documentation Reviewed and Agree: Yes Does patient meet sepsis criteria?: No System Inflammatory Response Syndrome: Not Applicable Sepsis Protocol: For patient's 13 years and over: Temp is 96.8 and below OR 101 and greater Pulse >90 BPM Resp >20/minute Acutely Altered Mental Status Are patient's symptoms suggestive of a new infection, such as: -Pneumonia -Skin, Soft Tissue -Endocarditis -UTI -Bone, Joint Infection -Implantable Device -Acute Abdominal Infection -Wound Infection -Meningitis -Blood Stream Catheter Infection -Unknown Cardiovascular Complaint Exam - Chest Pain Complaint/Exam Onset: Gradual Symptoms Are: Still present (but resolving) Timing: Intermittent Length of Chest Pain Episodes: several hours intermittently. Denies N-V Initial Severity: Moderate Current Severity: Mild Location: Reports: Other (midepigastrium) Pain Radiates: Reports: None Character: Reports: Burning, Heaviness, Pressure Aggravating: Reports: None Alleviating: Reports: Rest Associated Signs and Symptoms: Denies: Diaphoresis, Nausea, Vomiting, Fever, Palpitations, Cough, Hemoptysis, Back pain, Abdominal pain, Dizziness, Short of air, Calf pain, Calf swelling Related History: Reports: Similar episode, Current Sj Inhibitors, Current Beta [place] Related Surgical History: Reports: None History of Healthcare-Acquired Pneumonia: Reports: No AMI/ACS Risk Factors: Reports: Hypertension TAD Risk Factors: Reports: Hypertension Pulmonary Embolism Risk Factors: Reports: None Prior Care for this Complaint: No Recent Stress Test: No Recent Echo/LV Function: No JVD Present: No Subcutaneous Emphysema Present: No Diminshed Breath Sounds: No Reproducible Chest Wall Pain: Yes Bilateral Pulses Present: No Unequal Pulses Noted: No If Risk Factors for AMI/ACS Consider: EKG, Cardiac Enzymes Review of Systems - Review Of Systems Constitutional: Reports: No symptoms Eyes: Reports: No symptoms Ears, Nose, Mouth, Throat: Reports: No symptoms Respiratory: Reports: No symptoms Cardiac: Reports: No symptoms, Chest pain GI: Reports: No symptoms : Reports: No symptoms Musculoskeletal: Reports: No symptoms Skin: Reports: No symptoms Neurological: Reports: No symptoms Endocrine: Reports: No symptoms Hematologic/Lymphatic: Reports: No symptoms All Other Systems: Reviewed and Negative Past Medical History - Past Medical History Previously Healthy: Yes Endocrine: Reports: None Cardiovascular: Reports: Hypertension Respiratory: Reports: Asthma Hematological: Reports: None Gastrointestinal: Reports: GERD Genitourinary: Reports: None Neuro/Psych: Reports: None Musculoskeletal: Reports: None Cancer: Reports: None Last Menstrual Period: n/a Other Pertinent Past Medical History: Schatzki's ring, gastritis, esophageal dilatation and biopsy of stomach - Surgical History General Surgical History: Reports: Hysterectomy, (x2 ), Orthopedic ( carpal tunnel), Other ( esophageal dilatation and biopsy of lesser curvature, ) - Family History Family History: Reports: None - Social History Smoking Status: Current some day smoker, Light tobacco smoker Hx Substance Use: No Alcohol Screening: Occasionally Physical Exam - Physical Exam Appearance: Well-appearing, No pain distress, Well-nourished, Obese Ill-appearing: Mild Eyes: CAMILO, EOMI, Conjunctiva clear ENT: Ears normal, Nose normal, Oropharynx normal Respiratory: Airway patent, Breath sounds clear, Breath sounds equal, Respirations nonlabored Cardiovascular: RRR, Pulses normal, No rub, No murmur GI/: Soft, No masses, Bowel sounds normal, No Organomegaly, Bowel sounds hyperactive Musculoskeletal: Normal strength, ROM intact, No edema, No calf tenderness Skin: Warm, Dry, Normal color Neurological: Sensation intact, Motor intact, Reflexes intact, Cranial nerves intact, Alert, Oriented Psychiatric: Affect appropriate, Mood appropriate Critical Care Note - Critical Care Note Total Time (mins): 60 Comments: 60 Course - Course Hematology/Chemistry: 05/17/18 15:09 05/17/18 15:09 Orders, Labs, Meds: Lab Review 05/17/18 05/17/18 05/17/18 15:09 15:09 15:09 WBC 7.53 RBC 4.20 Hgb 13.4 Hct 40.5 MCV 96.4 MCH 31.9 H MCHC 33.1 RDW Coeff of Shahab 13.2 Plt Count 294 Immature Gran % (Auto) 0.1 Neut % (Auto) 62.5 Lymph % (Auto) 30.5 [place] % (Auto) 5.0 Eos % (Auto) 1.6 Baso % (Auto) 0.3 Immature Gran # (Auto) 0.0 Neut # (Auto) 4.7 Lymph # (Auto) 2.3 [place] # (Auto) 0.4 Eos # (Auto) 0.1 Baso # (Auto) 0.0 Sodium 135.5 L Potassium 4.08 Chloride 105.5 Carbon Dioxide 25.3 Anion Gap 8.78 BUN 9.2 Creatinine 0.74 Estimated GFR (MDRD) 105.00 BUN/Creatinine Ratio 12.43 Glucose 88.6 Calcium 9.27 Total Bilirubin 0.59 AST 21.3 ALT 14.1 Alkaline Phosphatase 78.0 Troponin I < 0.012 Total Protein 7.09 Albumin 4.07 Globulin 3.02 Albumin/Globulin Ratio 1.34 Lipase Urine Color Urine Clarity Urine pH Ur Specific [place] Urine Protein Urine Glucose (UA) Urine Ketones Urine Blood Urine Nitrite Urine Bilirubin Urine Urobilinogen Ur Leukocyte Esterase Urine Microscopic WBC Ur Squamous Epith Cells 05/17/18 05/17/18 15:09 15:53 WBC RBC Hgb Hct MCV MCH MCHC RDW Coeff of Shahab Plt Count Immature Gran % (Auto) Neut % (Auto) Lymph % (Auto) [place] % (Auto) Eos % (Auto) Baso % (Auto) Immature Gran # (Auto) Neut # (Auto) Lymph # (Auto) [place] # (Auto) Eos # (Auto) Baso # (Auto) Sodium Potassium Chloride Carbon Dioxide Anion Gap BUN Creatinine Estimated GFR (MDRD) BUN/Creatinine Ratio Glucose Calcium Total Bilirubin AST ALT Alkaline Phosphatase Troponin I Total Protein Albumin Globulin Albumin/Globulin Ratio Lipase 58.7 Urine Color Yellow Urine Clarity Clear Urine pH 7.5 Ur Specific [place] 1.020 Urine Protein Negative Urine Glucose (UA) Negative Urine Ketones Negative Urine Blood Negative Urine Nitrite Negative Urine Bilirubin Negative Urine Urobilinogen 4.0 Ur Leukocyte Esterase Trace Urine Microscopic WBC 0-2 Ur Squamous Epith Cells 50-100 Orders Category Date Time Status EKG-(ED ONLY) Stat CARDIO 05/17/18 14:45 Completed CBC W/ AUTO DIFF Stat LAB 05/17/18 15:09 Completed CMP [COMPREHENSIVE METABOLIC PANEL] Stat LAB 05/17/18 15:09 Completed LIPASE Stat LAB 05/17/18 15:09 Completed TROPONIN I Stat LAB 05/17/18 15:09 Completed UA [URINALYSIS C & S IF INDICATED] Stat LAB 05/17/18 15:53 Completed Ketorolac Tromethamine [Toradol] MEDS 05/17/18 15:51 Discontinued 30 mg IM ONCE STA Mag-Al Plus//Lidocaine [Gi Cocktail] MEDS 05/17/18 14:45 Discontinued 30 ml PO ONCE STA CHEST, 1V AP ONLY Stat RADS 05/17/18 14:45 Completed Medications Discontinued Medications Generic Name Dose Route Start Last Admin Trade Name Babak PRN Reason Stop Dose Admin Al Hydroxide/Mg Hydroxide 30 ml 05/17/18 14:45 05/17/18 15:16 Gi Cocktail PO 05/17/18 14:46 30 ml ONCE STA Administration Ketorolac Tromethamine 30 mg 05/17/18 15:51 05/17/18 15:58 Toradol IM 05/17/18 15:52 30 mg ONCE STA Administration Vital Signs: Temp Pulse Resp BP Pulse Ox 05/17/18 14:13 98.7 F 75 20 142/88 H 99 YOKASTA Risk Score YOKASTA Risk Score: Risk Score Odds of by 30D 0 0.1 (0.1-0.2) 1 0.3 (0.2-0.3) 2 0.4 (0.3-0.5) 3 0.7 (0.6-0.9) 4 1.2 (1.0-1.5) 5 2.2 (1.9-2.6) 6 3.0 (2.5-3.6) 7 4.8 (3.8-6.1) Departure - Departure Time of Disposition: 14:10 Disposition: HOME SELF-CARE Discharge Problem: Midepigastric pain, Low back pain, Lumbar strain, GERD (gastroesophageal reflux disease) Instructions: Low Back Strain (ED), Gastroesophageal Reflux Disease (ED) Condition: Good Pt referred to PMD for follow-up: Yes IPMP verified?: No Additional Instructions: follow up with your doctor. Allergies/Adverse Reactions: Allergies No Known Allergies Allergy (Verified 05/22/18 17:17) Home Medications: Ambulatory Orders Albuterol Sulfate [Proair Hfa] 2 puff IH Q6H MDD shortness of air 02/02/18 Lisinopril 10 mg PO BEDTIME #30 tablet 02/13/18 Pantoprazole Sodium [Protonix] 40 mg PO DAILY PRN 05/17/18 Cephalexin [Keflex] 500 mg PO BID #14 capsule 05/22/18 Disposition Discussed With: Patient
[2018-05-17] MEDS ORDERED: GI COCKTAIL PO STA (14:45)
--- NOTE | 2018-05-17 15:29 | DI ---
EXAM: Chest one view HISTORY: Pain COMPARISON: 02/13/2018 TECHNIQUE: Single view of the chest was performed FINDINGS: The lungs are clear. There is no pleural effusion or pneumothorax. The heart is normal i n size. The mediastinal contour is normal. There are no acute abnormalities of the bones. IMPRESSION: No acute cardiopulmonary process.
[2018-05-17] MEDS ORDERED: TORADOL IM STA (15:51)
== END 2018-05-17 16:26 | disposition home or self-care (01) ==
LOC: ED 14:12
DX: S39.012A Strain of muscle, fascia and tendon of lower back, initial encounter (principal); K21.9 Gastro-esophageal reflux disease without esophagitis; I10 Essential (primary) hypertension; F17.210 Nicotine dependence, cigarettes, uncomplicated; X50.1XXA Overexertion from prolonged static or awkward postures, initial encounter
CPT/HCPCS: 36415; 80053; 81001; 83690; 84484; 85025; 93005; 93010; 96372; 99284